=== PATIENT | female | born 1975 | race Caucasian/White ===

== ENCOUNTER 2016-07-16 00:33 | Emergency (ER) | payer OTHER ==
--- NOTE | 2016-07-16 01:32 | ED ORDER SUMMARY ---
..... Patient: YAMILET CASTILLO OrderSheet [facility] VisitID: [id number] [address] [place] [address] 40y, F Registration Date/Time: 07/16/2016 ORDER SHEET Weight: 99.7 kg (stated) Allergies: No Known Drug Allergy GENERAL ORDERS: UA-Culture if indicated Urgent (00:53 07/16/2016 Antoinetteier R.N. per protocol) (Ack 0:54 Anjana) (0:59 Yamileth R.N.) MEDICATION ORDERS: Toradol IM 60 mg (NOW) (:07/16/2016 Boyd RUIZ) (Ack 1:20 RCollier R.N.) (1:29 Antoinetteier R.N.) Ciprofloxacin PO 500 mg (NOW) (01:07/16/2016 Boyd RUIZ) (Ack 1:30 Antoinetteier R.N.) (1:50 RCollier R.N.) IV FLUIDS: ORDER SHEET NOTES: [Electronically signed by Brenda Barkley R.N. (07/16/2016)] [Electronically signed by Charles Ibarra MD (21:09 07/17/2016)] [Electronically locked/signed by Brenda Barkley R.N. (07/16/2016)]
--- NOTE | 2016-07-16 01:32 | ED NURSING NOTES ---
Clinical Report - Nurses [facility] [address] [place] [address] 07/16/2016 0:33 Patient: YAMILET CASTILLO TRIAGE Triage time 00:40. Acuity: LEVEL 4. Chief Complaint: VAGINAL PAIN. Alert. --00:49 Brenda Barkley R.N. 00:39 07/16/16. BP: 158/60. HR: 101. RR: 16 (regular and unlabored). O2 saturation: 100%. Temp: 98.3 F (oral). Pain level now: 09/08. --00:49 Brenda Barkley R.N. Weight: 99.7 kg stated. Height/Length: 59 inches Per Patient. BMI: 44.4. --00:47 Brenda Barkley R.N. Medications Gabapentin Oral (Tablet 600 mg) 1 tablet, 4x a day. --00:43 Brenda Barkley R.N. Macorbid. --00:43 Brenda Barkley R.N. Pyridium Oral. --00:43 Brenda Barkley R.N. Ranitidine HCl Oral (Capsule 150 mg) 1 capsule, 2x a day. --00:44 Brenda Barkley R.N. Dilaudid Oral (Tablet 4 mg) 1 tablet, 3 times daily, stopped one week ago. --00:44 Brenda Barkley R.N. Effexor XR Oral 75 mg, at bedtime. --00:45 Brenda Barkley R.N. TraZODone HCl Oral 100 mg, at bedtime. --00:45 Brenda Barkley R.N. LORazepam Oral (Tablet 0.5 mg) 1 tablet, 3x a day. --00:45 Brenda Barkley R.N. Benadryl Oral, as needed. --00:45 Brenda Barkley R.N. Tylenol Oral (Tablet 325 mg), as needed. --00:46 Brenda Barkley R.N. Allergies No Known Drug Allergy. --00:43 Brenda Barkley R.N. History Arrived by private vehicle. Historian: patient. Accompanied by spouse. Primary physician (Elias). ( has been treated by urologist for past week for UTI, symptoms are not impoving. Pt is having increased vaginal pain (worse tonight), but has been ongoing issue for past 4 years.). Onset. (about 1 weeks ago). 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 PAST MEDICAL HX: Immunizations: up-to-date. Last normal menstrual period was 1 week ago. SOCIAL HX: Heavy tobacco smoker (cigarette)- less than 1 pack per day. No alcohol use or drug use. FUNCTIONAL ASSESSMENT: Functional assessment performed: requires assistance with the activities of daily living; uses wheelchair. --00:49 Brenda Barkley R.N. PROBLEMS: Urinary Retention [Chronic]. --00:47 Brenda Barkley R.N. Gastroesophageal Reflux. Insomnia. Depression. Anxiety Reaction. Anemia. Spina Bifida Occulta. --00:47 Brenda Barkley R.N. ADDITIONAL SURGERIES: . Cystocelle repair. IVC filter. Spina bifida. Suprapubic cystostomy []. Tubal Ligation. --00:47 Brenda Barkley R.N. Interventions ID band on patient. To treatment room. --00:49 Brenda Barkley R.N. PHYSICAL ASSESSMENT To room via wheelchair. Patient gowned. GENERAL / NEURO / PSYCH: Alert. Oriented X 4. Appears in no acute distress. HEENT: Mucous membranes are pink. RESPIRATORY: Respirations not labored. CVS: Capillary refill less than 2 seconds. SKIN: Skin is warm and dry. --00:49 Brenda Barkley R.N. NURSING PROGRESS NOTES Head of bed elevated. Two patient identifiers checked. Call light placed in reach. Side rails up x 1. Bed placed in lowest position. Brakes of bed on. --00:50 Brenda Barkley R.N. Patient ready for evaluation- chart flagged. --00:50 Brenda Barkley R.N. Patient ID band checked for patient name and birthdate: patient confirmed. Catheterized urine collected with return of red-colored urine; sample sent to lab. Specimen labeled in the presence of the patient (colected and labeled by True Yeager RN from subrapubic cath (presentupon arrival to ED)). --00:54 Brenda Barkley R.N. 01:25 07/16/2016 Toradol (Ketorolac Tromethamine) IM 60 mg given. Given in the left ventral gluteus. Allergies verified and confirmed 5 rights. --01:29 Brenda Barkley R.N. 01:40 07/16/2016 Ciprofloxacin (Ciprofloxacin) PO Tablets 500 mg given. Allergies verified and confirmed 5 rights. --01:50 Brenda Barkley R.N. DISPOSITION / DISCHARGE Condition at departure: stable. No learning barriers present. Discharge instructions provided and reviewed with the patient. Reviewed medication(s) side effects, precautions, dosing and course information. Prescription(s) given to the patient. Patient verbalized understanding. Written instructions provided in Macedonian. The patient was discharged home and accompanied by spouse. She left the Emergency Department in a wheelchair and via private vehicle. Spouse driving. --01:51 Brenda Barkley R.N. 01:44 07/16/16. BP: 131/79. HR: 90. RR: 16. O2 saturation: 98% on room air. Temp: deferred. Fox-Mccloud pain scale: 4/10. --01:51 Brenda Barkley R.N. Locked/Released at 07/16/2016 1:53 by Brenda Barkley R.N.
--- NOTE | 2016-07-16 01:32 | ED CLINICAL REPORT ---
Clinical Report - Physicians/Mid Levels [facility] [address] [place] [address] 07/16/2016 0:33 Patient: YAMILET CASTILLO Time Seen: 01:09 Jul 16 2016. Arrived- By private vehicle. Historian- patient and family. CPT: ER phys charges level 4 (#[id number]). HISTORY OF PRESENT ILLNESS Chief Complaint: VAGINAL PAIN and DYSURIA. 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 This is no different and nothing new. She has increased pain because her pain that clinic stopped her pain medicines for the vaginal pain. She has no vaginal discharge or other complaints. she is worried about getting an Enterobacter infection in the urine as this happened to her in the past and required hospitalization. This was due to a failure of Macrobid. She recently saw a urologist that week ago and was placed on Macrobid for UTI. She feels that she may not be better now has a little left flank pain as well. She notes she has chills but not a fever. Modifying factors- worsened by urination. Not relieved by anything. No abdominal pain, flank pain, abnormal bleeding, vaginal discharge or vaginal itching. No genital lesions. (still has cloudy urine.). Similar symptoms previously: Worse. Recent medical care: The patient was seen recently at another facility in the office. Seen for similar symptoms. Evaluation/treatment- macrobid. Diagnosis: (uti). REVIEW OF SYSTEMS No nausea, vomiting, diarrhea, black stools or fever. No chills, sore throat, cough, difficulty breathing or chest pain. No skin rash. All systems otherwise negative, except as recorded above. PAST HISTORY ( UTI; urosepsis due to enterobacter Urinary Retention [Chronic]. --00:47 Brenda Barkley R.N. Gastroesophageal Reflux. Insomnia. Depression. Anxiety Reaction. Anemia. Spina Bifida Occulta. --00:47 Brenda Barkley R.N. ADDITIONAL SURGERIES: . Cystocelle repair. IVC filter. Spina bifida. Suprapubic cystostomy [3 /]. Tubal Ligation.). Medications: Tylenol Oral (Tablet 325 mg), as needed. Benadryl Oral, as needed. LORazepam Oral (Tablet 0.5 mg) 1 tablet, 3x a day. TraZODone HCl Oral 100 mg, at bedtime. Effexor XR Oral 75 mg, at bedtime. Dilaudid Oral (Tablet 4 mg) 1 tablet, 3 times daily, stopped one week ago. Ranitidine HCl Oral (Capsule 150 mg) 1 capsule, 2x a day. Pyridium Oral. Macorbid. Gabapentin Oral (Tablet 600 mg) 1 tablet, 4x a day. Allergies: No Known Drug Allergy. SOCIAL HISTORY Heavy tobacco smoker (cigarette)- 1 pack per day. No alcohol use or drug use. ADDITIONAL NOTES The nursing notes have been reviewed. PHYSICAL EXAM Vital Signs: 07/16/2016 00:39 BP: 158/60. HR: 101. RR: 16. O2 saturation: 100%. Temp: 98.3 F. Pain level now: 7/10. Appearance: Alert. No acute distress. ENT: Pharynx normal. CVS: Heart sounds normal. Respiratory: No respiratory distress. Abdomen: Soft. Mild tenderness in the suprapubic area and lower abdomen. Back: Normal external inspection. No CVA tenderness. Skin: Skin warm. Normal skin color. No rash. Extremities: Extremities nontender. Neuro: Oriented X 3. LABS, X-RAYS, AND EKG Laboratory Tests: UA-Culture if indicated: (ARRON: 07/16/2016 00:45) ( MsgRcvd 07/16/2016 01:06) Final results Test Result Flag Units (Reference) URINE COLOR RED URINE APPEARANCE CLOUDY URINE GLUCOSE 1+ (NEGATIVE) URINE BILIRUBIN 1+ (NEGATIVE) URINE KETONE TRACE (NEGATIVE) URINE SPECIFIC GRAVITY 1.020 (1.010-1.030) URINE PH 5.0 (5.0-8.0) URINE PROTEIN 3+ (NEGATIVE) URINE UROBILINOGEN >=8.0 EU/dL (0.2-1.0) URINE NITRITE POSITIVE (NEGATIVE) URINE BLOOD TRACE-INTACT (NEGATIVE) URINE LEUK ESTERASE POSITIVE (NEGATIVE) URINE RBC 5-10 rbc/hpf (0-1) URINE WBC 5-10 wbc/hpf (0-1) URINE EPITHELIAL CELLS 3-5 EPI/hpf (0-5) URINE BACTERIA FEW (1+) (NONE SEEN) URINE COMMENT CULTURE INDICATED MANY YEASTURINE CULTURES ARE SET-UP BASED ON THE FOLLOWING CRITERIA:POSITIVE NITRITEPOSITIVE LEUKOCYTE ESTERASEGREATER THAN 10 WHITE BLOOD CELLSMODERATE (2+) OR GREATER BACTERIA Culture, Urine: (ARRON: 07/16/2016 00:45) ( MsgRcvd 07/17/2016 12:30) IP Test Result Flag Units (Reference) CULTURE, URINE DATE: 07/17/16 PRELIM REPORT: PRELIMINARY REPORT #1 -- YST QUANTITATIVE URINE GROWTH: 50,000 TO 100,000 CFU/mL ID AND SENS TO FOLLOW: NO FURTHER WORKUP -- GNR QUANTITATIVE URINE GROWTH: 10,000 TO 50,000 CFU/mL ID AND SENS TO FOLLOW: IDENTIFICATION AND SENSITIVITY TO FOLLOW -- MXDGNGP QUANTITATIVE URINE GROWTH: LESS THAN 10,000 CFU/mL ID AND SENS TO FOLLOW: NO FURTHER WORKUP . PROGRESS AND PROCEDURES Course of Care: Pt defers pelvic due to no new symptoms to report in that area. Her pain is chronic. Toradol 60 mg IM Cipro 500 mg po Patient is stable. Patient/family counseled. Disposition: Discharged. Condition: stable. CLINICAL IMPRESSION UTI resistant to treatment Chronic vaginal pain. INSTRUCTIONS Drink plenty of fluids. Warnings: Further evaluation is necessary. Your Current Medications: CONTINUE TAKING THE FOLLOWING MEDICATIONS: Benadryl Oral : prn. Dilaudid Oral : Tablet 4 mg, 1 tablet 3 times daily, Stopped: one week ago. Effexor XR Oral : 75 mg at bedtime. Gabapentin Oral : Tablet 600 mg, 1 tablet 4x a day. LORazepam Oral : Tablet 0.5 mg, 1 tablet 3x a day. Macorbid*. Pyridium Oral. Ranitidine HCl Oral : Capsule 150 mg, 1 capsule 2x a day. TraZODone HCl Oral : 100 mg at bedtime. Tylenol Oral : Tablet 325 mg, prn. Prescription Medications: Cipro 500 mg: take 1 tab orally every 12 hours for 10 days. Dispense twenty (20). No refills. Substitution is permissible. Tramadol 50 mg: take 1-2 orally every 6 hours as needed for pain. Dispense fifteen (15). No refills. Follow-up: Follow up with your doctor in three days. Call for an appointment. Understanding of the discharge instructions verbalized by patient and family. (Electronically signed by Charles Ibarra MD 07/17/2016 21:09) Addenda for YAMILET CASTILLO VisitID: [id number] Date: 07/16/2016 07/16/2016 1:53 Pts home number , verified for culture follow up. Alternative number [phone], , Dell's cell number also given in case need for follow up. (Electronically signed by Brenda Barkley R.N. - 07/16/2016 1:53) 07/17/2016 20:05 2000 Message left on pts cell phone to call back for culture results (Electronically signed by Flavia Orr R.N. - 07/17/2016 20:05) 07/17/2016 21:05 2029 Pt called back, given information, states she wanted us to call rx to Mehnaz villalba in [facility]. [phone] called and rx for Diflucan 150mg po #1 per Isa TYLER called in (Electronically signed by Flavia Orr R.N. - 07/17/2016 21:05)
--- NOTE | 2016-07-16 01:32 | ED NURSING NOTES ---
Clinical Report - Nurses [facility] [address] [place] [address] 07/16/2016 0:33 Patient: YAMILET CASTILLO TRIAGE Triage time 00:40. Acuity: LEVEL 4. Chief Complaint: VAGINAL PAIN. Alert. --00:49 Brenda Barkley R.N. 00:39 07/16/16. BP: 158/60. HR: 101. RR: 16 (regular and unlabored). O2 saturation: 100%. Temp: 98.3 F (oral). Pain level now: 09/08. --00:49 Brenda Barkley R.N. Weight: 99.7 kg stated. Height/Length: 59 inches Per Patient. BMI: 44.4. --00:47 Brenda Barkley R.N. Medications Gabapentin Oral (Tablet 600 mg) 1 tablet, 4x a day. --00:43 Brenad Barkley R.N. Macorbid. --00:43 Brenda Barkley R.N. Pyridium Oral. --00:43 Brenda Barkley R.N. Ranitidine HCl Oral (Capsule 150 mg) 1 capsule, 2x a day. --00:44 Brenda Barkley R.N. Dilaudid Oral (Tablet 4 mg) 1 tablet, 3 times daily, stopped one week ago. --00:44 Brenda Barkley R.N. Effexor XR Oral 75 mg, at bedtime. --00:45 Brenda Barkley R.N. TraZODone HCl Oral 100 mg, at bedtime. --00:45 Brenda Barkley R.N. LORazepam Oral (Tablet 0.5 mg) 1 tablet, 3x a day. --00:45 Brenda Barkley R.N. Benadryl Oral, as needed. --00:45 Brenda Barkley R.N. Tylenol Oral (Tablet 325 mg), as needed. --00:46 Brenda Barkley R.N. Allergies No Known Drug Allergy. --00:43 Brenda Barkley R.N. History Arrived by private vehicle. Historian: patient. Accompanied by spouse. Primary physician (Elias). ( has been treated by urologist for past week for UTI, symptoms are not impoving. Pt is having increased vaginal pain (worse tonight), but has been ongoing issue for past 4 years.). Onset. (about 1 weeks ago). Treatment MODEL AND DYE PERSON: (pyridium, Macrobid (last dose tonight at 2030)). PAST MEDICAL HX: Immunizations: up-to-date. Last normal menstrual period was 1 week ago. SOCIAL HX: Heavy tobacco smoker (cigarette)- less than 1 pack per day. No alcohol use or drug use. FUNCTIONAL ASSESSMENT: Functional assessment performed: requires assistance with the activities of daily living; uses wheelchair. --00:49 Brenda Barkley R.N. PROBLEMS: Urinary Retention [Chronic]. --00:47 Brenda Barkley R.N. Gastroesophageal Reflux. Insomnia. Depression. Anxiety Reaction. Anemia. Spina Bifida Occulta. --00:47 Brenda Barkley R.N. ADDITIONAL SURGERIES: . Cystocelle repair. IVC filter. Spina bifida. Suprapubic cystostomy []. Tubal Ligation. --00:47 Brenda Barkley R.N. Interventions ID band on patient. To treatment room. --00:49 Brenda Barkley R.N. PHYSICAL ASSESSMENT To room via wheelchair. Patient gowned. GENERAL / NEURO / PSYCH: Alert. Oriented X 4. Appears in no acute distress. HEENT: Mucous membranes are pink. RESPIRATORY: Respirations not labored. CVS: Capillary refill less than 2 seconds. SKIN: Skin is warm and dry. --00:49 Brenda Barkley R.N. NURSING PROGRESS NOTES Head of bed elevated. Two patient identifiers checked. Call light placed in reach. Side rails up x 1. Bed placed in lowest position. Brakes of bed on. --00:50 Brenda Barkley R.N. Patient ready for evaluation- chart flagged. --00:50 Brenda Barkley R.N. Patient ID band checked for patient name and birthdate: patient confirmed. Catheterized urine collected with return of red-colored urine; sample sent to lab. Specimen labeled in the presence of the patient (colected and labeled by True Yeager RN from subrapubic cath (presentupon arrival to ED)). --00:54 Brenda Barkley R.N. 01:25 07/16/2016 Toradol (Ketorolac Tromethamine) IM 60 mg given. Given in the left ventral gluteus. Allergies verified and confirmed 5 rights. --01:29 Brenda Barkley R.N. 01:40 07/16/2016 Ciprofloxacin (Ciprofloxacin) PO Tablets 500 mg given. Allergies verified and confirmed 5 rights. --01:50 Brenda Barkley R.N. DISPOSITION / DISCHARGE Condition at departure: stable. No learning barriers present. Discharge instructions provided and reviewed with the patient. Reviewed medication(s) side effects, precautions, dosing and course information. Prescription(s) given to the patient. Patient verbalized understanding. Written instructions provided in Filipino. The patient was discharged home and accompanied by spouse. She left the Emergency Department in a wheelchair and via private vehicle. Spouse driving. --01:51 Brenda Barkley R.N. 01:44 07/16/16. BP: 131/79. HR: 90. RR: 16. O2 saturation: 98% on room air. Temp: deferred. Fox-Mccloud pain scale: 4/10. --01:51 Brenda Barkley R.N. Locked/Released at 07/16/2016 1:53 by Brenda Barkley R.N.
--- NOTE | 2016-07-16 01:32 | ED ORDER SUMMARY ---
..... Patient: YAMILET CASTILLO OrderSheet [facility] VisitID: [id number] [address] [place] [address] 40y, F Registration Date/Time: 07/16/2016 ORDER SHEET Weight: 99.7 kg (stated) Allergies: No Known Drug Allergy GENERAL ORDERS: UA-Culture if indicated Urgent (00:53 07/16/2016 Antoinetteier R.N. per protocol) (Ack 0:54 Anjana) (0:59 Yamileth R.N.) MEDICATION ORDERS: Toradol IM 60 mg (NOW) (:07/16/2016 Boyd RUIZ) (Ack 1:20 RCollier R.N.) (1:29 Antoinetteier R.N.) Ciprofloxacin PO 500 mg (NOW) (01:07/16/2016 Boyd RUIZ) (Ack 1:30 Antoinetteier R.N.) (1:50 RCollier R.N.) IV FLUIDS: ORDER SHEET NOTES: [Electronically signed by Brenda Barkley R.N. (07/16/2016)] [Electronically signed by Charles Ibarra MD (21:09 07/17/2016)] [Electronically locked/signed by Brenda Barkley R.N. (07/16/2016)]
--- NOTE | 2016-07-16 01:32 | ED CLINICAL REPORT ---
Clinical Report - Physicians/Mid Levels [facility] [address] [place] [address] 07/16/2016 0:33 Patient: YAMILET CASTILLO Time Seen: 01:09 Jul 16 2016. Arrived- By private vehicle. Historian- patient and family. CPT: ER phys charges level 4 (#[id number]). HISTORY OF PRESENT ILLNESS Chief Complaint: VAGINAL PAIN and DYSURIA. 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 This is no different and nothing new. She has increased pain because her pain that clinic stopped her pain medicines for the vaginal pain. She has no vaginal discharge or other complaints. she is worried about getting an Enterobacter infection in the urine as this happened to her in the past and required hospitalization. This was due to a failure of Macrobid. She recently saw a urologist that week ago and was placed on Macrobid for UTI. She feels that she may not be better now has a little left flank pain as well. She notes she has chills but not a fever. Modifying factors- worsened by urination. Not relieved by anything. No abdominal pain, flank pain, abnormal bleeding, vaginal discharge or vaginal itching. No genital lesions. (still has cloudy urine.). Similar symptoms previously: Worse. Recent medical care: The patient was seen recently at another facility in the office. Seen for similar symptoms. Evaluation/treatment- macrobid. Diagnosis: (uti). REVIEW OF SYSTEMS No nausea, vomiting, diarrhea, black stools or fever. No chills, sore throat, cough, difficulty breathing or chest pain. No skin rash. All systems otherwise negative, except as recorded above. PAST HISTORY ( UTI; urosepsis due to enterobacter Urinary Retention [Chronic]. --00:47 Brenda Barkley R.N. Gastroesophageal Reflux. Insomnia. Depression. Anxiety Reaction. Anemia. Spina Bifida Occulta. --00:47 Brenda Barkley R.N. ADDITIONAL SURGERIES: . Cystocelle repair. IVC filter. Spina bifida. Suprapubic cystostomy [3 /]. Tubal Ligation.). Medications: Tylenol Oral (Tablet 325 mg), as needed. Benadryl Oral, as needed. LORazepam Oral (Tablet 0.5 mg) 1 tablet, 3x a day. TraZODone HCl Oral 100 mg, at bedtime. Effexor XR Oral 75 mg, at bedtime. Dilaudid Oral (Tablet 4 mg) 1 tablet, 3 times daily, stopped one week ago. Ranitidine HCl Oral (Capsule 150 mg) 1 capsule, 2x a day. Pyridium Oral. Macorbid. Gabapentin Oral (Tablet 600 mg) 1 tablet, 4x a day. Allergies: No Known Drug Allergy. SOCIAL HISTORY Heavy tobacco smoker (cigarette)- 1 pack per day. No alcohol use or drug use. ADDITIONAL NOTES The nursing notes have been reviewed. PHYSICAL EXAM Vital Signs: 07/16/2016 00:39 BP: 158/60. HR: 101. RR: 16. O2 saturation: 100%. Temp: 98.3 F. Pain level now: 7/10. Appearance: Alert. No acute distress. ENT: Pharynx normal. CVS: Heart sounds normal. Respiratory: No respiratory distress. Abdomen: Soft. Mild tenderness in the suprapubic area and lower abdomen. Back: Normal external inspection. No CVA tenderness. Skin: Skin warm. Normal skin color. No rash. Extremities: Extremities nontender. Neuro: Oriented X 3. LABS, X-RAYS, AND EKG Laboratory Tests: UA-Culture if indicated: (ARRON: 07/16/2016 00:45) ( MsgRcvd 07/16/2016 01:06) Final results Test Result Flag Units (Reference) URINE COLOR RED URINE APPEARANCE CLOUDY URINE GLUCOSE 1+ (NEGATIVE) URINE BILIRUBIN 1+ (NEGATIVE) URINE KETONE TRACE (NEGATIVE) URINE SPECIFIC GRAVITY 1.020 (1.010-1.030) URINE PH 5.0 (5.0-8.0) URINE PROTEIN 3+ (NEGATIVE) URINE UROBILINOGEN >=8.0 EU/dL (0.2-1.0) URINE NITRITE POSITIVE (NEGATIVE) URINE BLOOD TRACE-INTACT (NEGATIVE) URINE LEUK ESTERASE POSITIVE (NEGATIVE) URINE RBC 5-10 rbc/hpf (0-1) URINE WBC 5-10 wbc/hpf (0-1) URINE EPITHELIAL CELLS 3-5 EPI/hpf (0-5) URINE BACTERIA FEW (1+) (NONE SEEN) URINE COMMENT CULTURE INDICATED MANY YEASTURINE CULTURES ARE SET-UP BASED ON THE FOLLOWING CRITERIA:POSITIVE NITRITEPOSITIVE LEUKOCYTE ESTERASEGREATER THAN 10 WHITE BLOOD CELLSMODERATE (2+) OR GREATER BACTERIA Culture, Urine: (ARRON: 07/16/2016 00:45) ( MsgRcvd 07/17/2016 12:30) IP Test Result Flag Units (Reference) CULTURE, URINE DATE: 07/17/16 PRELIM REPORT: PRELIMINARY REPORT #1 -- YST QUANTITATIVE URINE GROWTH: 50,000 TO 100,000 CFU/mL ID AND SENS TO FOLLOW: NO FURTHER WORKUP -- GNR QUANTITATIVE URINE GROWTH: 10,000 TO 50,000 CFU/mL ID AND SENS TO FOLLOW: IDENTIFICATION AND SENSITIVITY TO FOLLOW -- MXDGNGP QUANTITATIVE URINE GROWTH: LESS THAN 10,000 CFU/mL ID AND SENS TO FOLLOW: NO FURTHER WORKUP . PROGRESS AND PROCEDURES Course of Care: Pt defers pelvic due to no new symptoms to report in that area. Her pain is chronic. Toradol 60 mg IM Cipro 500 mg po Patient is stable. Patient/family counseled. Disposition: Discharged. Condition: stable. CLINICAL IMPRESSION UTI resistant to treatment Chronic vaginal pain. INSTRUCTIONS Drink plenty of fluids. Warnings: Further evaluation is necessary. Your Current Medications: CONTINUE TAKING THE FOLLOWING MEDICATIONS: Benadryl Oral : prn. Dilaudid Oral : Tablet 4 mg, 1 tablet 3 times daily, Stopped: one week ago. Effexor XR Oral : 75 mg at bedtime. Gabapentin Oral : Tablet 600 mg, 1 tablet 4x a day. LORazepam Oral : Tablet 0.5 mg, 1 tablet 3x a day. Macorbid*. Pyridium Oral. Ranitidine HCl Oral : Capsule 150 mg, 1 capsule 2x a day. TraZODone HCl Oral : 100 mg at bedtime. Tylenol Oral : Tablet 325 mg, prn. Prescription Medications: Cipro 500 mg: take 1 tab orally every 12 hours for 10 days. Dispense twenty (20). No refills. Substitution is permissible. Tramadol 50 mg: take 1-2 orally every 6 hours as needed for pain. Dispense fifteen (15). No refills. Follow-up: Follow up with your doctor in three days. Call for an appointment. Understanding of the discharge instructions verbalized by patient and family. (Electronically signed by Charles Ibarra MD 07/17/2016 21:09) Addenda for YAMILET CASTILLO VisitID: [id number] Date: 07/16/2016 07/16/2016 1:53 Pts home number , verified for culture follow up. Alternative number [phone], , Dell's cell number also given in case need for follow up. (Electronically signed by Brenda Barkley R.N. - 07/16/2016 1:53) 07/17/2016 20:05 2000 Message left on pts cell phone to call back for culture results (Electronically signed by Flavia Orr R.N. - 07/17/2016 20:05) 07/17/2016 21:05 2029 Pt called back, given information, states she wanted us to call rx to Mehnaz villalba in [facility]. [phone] called and rx for Diflucan 150mg po #1 per Isa TYLER called in (Electronically signed by Flavia Orr R.N. - 07/17/2016 21:05)
--- NOTE | 2016-07-17 21:09 | ED MAR SUMMARY ---
..... Medication Administration Record [facility] [address] [place] [address] Patient: YAMILET CASTILLO Visit ID: [id number] 40y, F Weight: 99.7 kg Height/Length: 59 in BMI: 44.4 ALLERGIES: No Known Drug Allergy Given 01:25 07/16/2016 Bredna Barkley, R.N. Medication Administered: TORADOL [IM] (KETOROLAC TROMETHAMINE), Dose: 60 mg IM. Medication Ordered: Toradol IM 60 mg (NOW). Given 01:40 07/16/2016 Brenda Barkley, R.N. Medication Administered: CIPROFLOXACIN [PO] (CIPROFLOXACIN), Dose: 500 mg Tablets PO. Medication Ordered: Ciprofloxacin PO 500 mg (NOW).
--- NOTE | 2016-07-17 21:09 | ED DISCHARGE INSTRUCTIONS ---
Patient: YAMILET CASTILLO General Instructions [facility] VisitID: [id number] [place] [address] 40y, F Registration Date/Time: 07/16/2016 UTI resistant to treatment Chronic vaginal pain. INSTRUCTIONS Drink plenty of fluids. Warnings: Further evaluation is necessary. Your Current Medications: CONTINUE TAKING THE FOLLOWING MEDICATIONS: Benadryl Oral : prn. Dilaudid Oral : Tablet 4 mg, 1 tablet 3 times daily, Stopped: one week ago. Effexor XR Oral : 75 mg at bedtime. Gabapentin Oral : Tablet 600 mg, 1 tablet 4x a day. LORazepam Oral : Tablet 0.5 mg, 1 tablet 3x a day. Macorbid*. Pyridium Oral. Ranitidine HCl Oral : Capsule 150 mg, 1 capsule 2x a day. TraZODone HCl Oral : 100 mg at bedtime. Tylenol Oral : Tablet 325 mg, prn. Prescription Medications: Cipro 500 mg: take 1 tab orally every 12 hours for 10 days. Dispense twenty (20). No refills. Substitution is permissible. Tramadol 50 mg: take 1-2 orally every 6 hours as needed for pain. Dispense fifteen (15). No refills. Follow-up: Follow up with your doctor in three days. Call for an appointment. Understanding of the discharge instructions verbalized by patient and family. ADDITIONAL INFORMATION Tramadol Hydrochloride Oral tablet What is this medicine? TRAMADOL (TRA ma dole) is a pain reliever. It is used to treat moderate to severe pain in adults. How should I use this medicine? Take this medicine by mouth with a full glass of water. Follow the directions on the prescription label. If the medicine upsets your stomach, take it with food or milk. Do not take more medicine than you are told to take. Talk to your piped buttonhole machine operator regarding the use of this medicine in children. Special care may be needed. What side effects may I notice from receiving this medicine? Side effects that you should report to your doctor or health hospice care transitions coordinator as soon as possible: allergic reactions like skin rash, itching or hives, swelling of the face, lips, or tongue breathing difficulties, wheezing confusion itching light headedness or fainting spells redness, blistering, peeling or loosening of the skin, including inside the mouth seizures Side effects that usually do not require medical attention (report to your doctor or health hospice care transitions coordinator if they continue or are bothersome): constipation dizziness drowsiness headache nausea, vomiting What may interact with this medicine? Do not take this medicine with any of the following medications: MAOIs like Carbex, Eldepryl, Marplan, Nardil, and Parnate This medicine may also interact with the following medications: alcohol or medicines that contain alcohol antihistamines benzodiazepines bupropion carbamazepine or oxcarbazepine clozapine cyclobenzaprine digoxin furazolidone linezolid medicines for depression, anxiety, or psychotic disturbances medicines for migraine headache like almotriptan, eletriptan, frovatriptan, naratriptan, rizatriptan, sumatriptan, zolmitriptan medicines for pain like pentazocine, buprenorphine, butorphanol, meperidine, nalbuphine, and propoxyphene medicines for sleep muscle relaxants naltrexone phenobarbital phenothiazines like perphenazine, thioridazine, chlorpromazine, mesoridazine, fluphenazine, prochlorperazine, promazine, and trifluoperazine procarbazine warfarin What if I miss a dose? If you miss a dose, take it as soon as you can. If it is almost time for your next dose, take only that dose. Do not take double or extra doses. Where should I keep my medicine? Keep out of the reach of children. Store at room temperature between 15 and 30 degrees C (59 and 86 degrees F). Keep container tightly closed. Throw away any unused medicine after the expiration date. What should I tell my health care provider before I take this medicine? They need to know if you have any of these conditions: brain tumor depression drug abuse or addiction head injury if you frequently drink alcohol containing drinks kidney disease or trouble passing urine liver disease lung disease, asthma, or breathing problems seizures or epilepsy suicidal thoughts, plans, or attempt; a previous suicide attempt by you or a family member an unusual or allergic reaction to tramadol, codeine, other medicines, foods, dyes, or preservatives or trying to get breast-feeding What should I watch for while using this medicine? Tell your doctor or health hospice care transitions coordinator if your pain does not go away, if it gets worse, or if you have new or a different type of pain. You may develop tolerance to the medicine. Tolerance means that you will need a higher dose of the medicine for pain relief. Tolerance is normal and is expected if you take this medicine for a long time. Do not suddenly stop taking your medicine because you may develop a severe reaction. Your body becomes used to the medicine. This does NOT mean you are addicted. Addiction is a behavior related to getting and using a drug for a non-medical reason. If you have pain, you have a medical reason to take pain medicine. Your doctor will tell you how much medicine to take. If your doctor wants you to stop the medicine, the dose will be slowly lowered over time to avoid any side effects. You may get drowsy or dizzy. Do not drive, use machinery, or do anything that needs mental alertness until you know how this medicine affects you. Do not stand or sit up quickly, especially if you are an older patient. This reduces the risk of dizzy or fainting spells. Alcohol can increase or decrease the effects of this medicine. Avoid alcoholic drinks. You may have constipation. Try to have a bowel movement at least every 2 to 3 days. If you do not have a bowel movement for 3 days, call your doctor or health hospice care transitions coordinator. Your mouth may get dry. Chewing sugarless gum or sucking hard candy, and drinking plenty of water may help. Contact your doctor if the problem does not go away or is severe. You have been given the following additional information: Tramadol Hydrochloride Oral tablet (Electronically signed by Charles Ibarra MD 07/17/2016 21:09)
--- NOTE | 2016-07-17 21:09 | ED DISCHARGE INSTRUCTIONS ---
Patient: YAMILET CASTILLO General Instructions [facility] VisitID: [id number] [place] [address] 40y, F Registration Date/Time: 07/16/2016 UTI resistant to treatment Chronic vaginal pain. INSTRUCTIONS Drink plenty of fluids. Warnings: Further evaluation is necessary. Your Current Medications: CONTINUE TAKING THE FOLLOWING MEDICATIONS: Benadryl Oral : prn. Dilaudid Oral : Tablet 4 mg, 1 tablet 3 times daily, Stopped: one week ago. Effexor XR Oral : 75 mg at bedtime. Gabapentin Oral : Tablet 600 mg, 1 tablet 4x a day. LORazepam Oral : Tablet 0.5 mg, 1 tablet 3x a day. Macorbid*. Pyridium Oral. Ranitidine HCl Oral : Capsule 150 mg, 1 capsule 2x a day. TraZODone HCl Oral : 100 mg at bedtime. Tylenol Oral : Tablet 325 mg, prn. Prescription Medications: Cipro 500 mg: take 1 tab orally every 12 hours for 10 days. Dispense twenty (20). No refills. Substitution is permissible. Tramadol 50 mg: take 1-2 orally every 6 hours as needed for pain. Dispense fifteen (15). No refills. Follow-up: Follow up with your doctor in three days. Call for an appointment. Understanding of the discharge instructions verbalized by patient and family. ADDITIONAL INFORMATION Tramadol Hydrochloride Oral tablet What is this medicine? TRAMADOL (TRA ma dole) is a pain reliever. It is used to treat moderate to severe pain in adults. How should I use this medicine? Take this medicine by mouth with a full glass of water. Follow the directions on the prescription label. If the medicine upsets your stomach, take it with food or milk. Do not take more medicine than you are told to take. Talk to your room designer regarding the use of this medicine in children. Special care may be needed. What side effects may I notice from receiving this medicine? Side effects that you should report to your doctor or health attending ambulatory care as soon as possible: allergic reactions like skin rash, itching or hives, swelling of the face, lips, or tongue breathing difficulties, wheezing confusion itching light headedness or fainting spells redness, blistering, peeling or loosening of the skin, including inside the mouth seizures Side effects that usually do not require medical attention (report to your doctor or health attending ambulatory care if they continue or are bothersome): constipation dizziness drowsiness headache nausea, vomiting What may interact with this medicine? Do not take this medicine with any of the following medications: MAOIs like Carbex, Eldepryl, Marplan, Nardil, and Parnate This medicine may also interact with the following medications: alcohol or medicines that contain alcohol antihistamines benzodiazepines bupropion carbamazepine or oxcarbazepine clozapine cyclobenzaprine digoxin furazolidone linezolid medicines for depression, anxiety, or psychotic disturbances medicines for migraine headache like almotriptan, eletriptan, frovatriptan, naratriptan, rizatriptan, sumatriptan, zolmitriptan medicines for pain like pentazocine, buprenorphine, butorphanol, meperidine, nalbuphine, and propoxyphene medicines for sleep muscle relaxants naltrexone phenobarbital phenothiazines like perphenazine, thioridazine, chlorpromazine, mesoridazine, fluphenazine, prochlorperazine, promazine, and trifluoperazine procarbazine warfarin What if I miss a dose? If you miss a dose, take it as soon as you can. If it is almost time for your next dose, take only that dose. Do not take double or extra doses. Where should I keep my medicine? Keep out of the reach of children. Store at room temperature between 15 and 30 degrees C (59 and 86 degrees F). Keep container tightly closed. Throw away any unused medicine after the expiration date. What should I tell my health care provider before I take this medicine? They need to know if you have any of these conditions: brain tumor depression drug abuse or addiction head injury if you frequently drink alcohol containing drinks kidney disease or trouble passing urine liver disease lung disease, asthma, or breathing problems seizures or epilepsy suicidal thoughts, plans, or attempt; a previous suicide attempt by you or a family member an unusual or allergic reaction to tramadol, codeine, other medicines, foods, dyes, or preservatives or trying to get breast-feeding What should I watch for while using this medicine? Tell your doctor or health attending ambulatory care if your pain does not go away, if it gets worse, or if you have new or a different type of pain. You may develop tolerance to the medicine. Tolerance means that you will need a higher dose of the medicine for pain relief. Tolerance is normal and is expected if you take this medicine for a long time. Do not suddenly stop taking your medicine because you may develop a severe reaction. Your body becomes used to the medicine. This does NOT mean you are addicted. Addiction is a behavior related to getting and using a drug for a non-medical reason. If you have pain, you have a medical reason to take pain medicine. Your doctor will tell you how much medicine to take. If your doctor wants you to stop the medicine, the dose will be slowly lowered over time to avoid any side effects. You may get drowsy or dizzy. Do not drive, use machinery, or do anything that needs mental alertness until you know how this medicine affects you. Do not stand or sit up quickly, especially if you are an older patient. This reduces the risk of dizzy or fainting spells. Alcohol can increase or decrease the effects of this medicine. Avoid alcoholic drinks. You may have constipation. Try to have a bowel movement at least every 2 to 3 days. If you do not have a bowel movement for 3 days, call your doctor or health attending ambulatory care. Your mouth may get dry. Chewing sugarless gum or sucking hard candy, and drinking plenty of water may help. Contact your doctor if the problem does not go away or is severe. You have been given the following additional information: Tramadol Hydrochloride Oral tablet (Electronically signed by Charles Ibarra MD 07/17/2016 21:09)
--- NOTE | 2016-07-17 21:09 | ED MED RECONCILIATION SUMMARY ---
Patient: YAMILET CASTILLO Medication Reconciliation Report [facility] VisitID: [id number] [address] [place] [address] 40y, F Registration Date/Time: 07/16/2016 Weight: 99.7 kg Height/Length: 59 in. BMI: 44.4 ALLERGIES: No Known Drug Allergy The patient's Home Medications are listed below: CONTINUE TAKING THE FOLLOWING MEDICATIONS: Benadryl Oral Dilaudid Oral (4 mg) 1 tablet, 3 times daily Effexor XR Oral 75 mg, at bedtime Gabapentin Oral (600 mg) 1 tablet, 4x a day LORazepam Oral (0.5 mg) 1 tablet, 3x a day Macorbid Pyridium Oral Ranitidine HCl Oral (150 mg) 1 capsule, 2x a day TraZODone HCl Oral 100 mg, at bedtime Tylenol Oral (325 mg) The source(s) of the original Home Medication information: Not obtained. The following Medications were given to the patient in the Emergency Department: Toradol [IM] IM 60 mg, administered: 07/16/2016 1:25:00 AM Ciprofloxacin [PO] PO 500 mg, administered: 07/16/2016 1:40:00 AM The following Medications were prescribed to the patient: Cipro 500 mg: take 1 tab orally every 12 hours for 10 days. Dispense twenty (20). No refills. Substitution is permissible. -- Charles Ibarra MD Tramadol 50 mg: take 1-2 orally every 6 hours as needed for pain. Dispense fifteen (15). No refills. -- Charles Ibarra MD
--- NOTE | 2016-07-17 21:09 | ED MED RECONCILIATION SUMMARY ---
Patient: YAMILET CASTILLO Medication Reconciliation Report [facility] VisitID: [id number] [address] [place] [address] 40y, F Registration Date/Time: 07/16/2016 Weight: 99.7 kg Height/Length: 59 in. BMI: 44.4 ALLERGIES: No Known Drug Allergy The patient's Home Medications are listed below: CONTINUE TAKING THE FOLLOWING MEDICATIONS: Benadryl Oral Dilaudid Oral (4 mg) 1 tablet, 3 times daily Effexor XR Oral 75 mg, at bedtime Gabapentin Oral (600 mg) 1 tablet, 4x a day LORazepam Oral (0.5 mg) 1 tablet, 3x a day Macorbid Pyridium Oral Ranitidine HCl Oral (150 mg) 1 capsule, 2x a day TraZODone HCl Oral 100 mg, at bedtime Tylenol Oral (325 mg) The source(s) of the original Home Medication information: Not obtained. The following Medications were given to the patient in the Emergency Department: Toradol [IM] IM 60 mg, administered: 07/16/2016 1:25:00 AM Ciprofloxacin [PO] PO 500 mg, administered: 07/16/2016 1:40:00 AM The following Medications were prescribed to the patient: Cipro 500 mg: take 1 tab orally every 12 hours for 10 days. Dispense twenty (20). No refills. Substitution is permissible. -- Charles Ibarra MD Tramadol 50 mg: take 1-2 orally every 6 hours as needed for pain. Dispense fifteen (15). No refills. -- Charles Ibarra MD
--- NOTE | 2016-07-17 21:09 | ED MAR SUMMARY ---
..... Medication Administration Record [facility] [address] [place] [address] Patient: YAMILET CASTILLO Visit ID: [id number] 40y, F Weight: 99.7 kg Height/Length: 59 in BMI: 44.4 ALLERGIES: No Known Drug Allergy Given 01:25 07/16/2016 Brenda Barkley, R.N. Medication Administered: TORADOL [IM] (KETOROLAC TROMETHAMINE), Dose: 60 mg IM. Medication Ordered: Toradol IM 60 mg (NOW). Given 01:40 07/16/2016 Brenda Barkley, R.N. Medication Administered: CIPROFLOXACIN [PO] (CIPROFLOXACIN), Dose: 500 mg Tablets PO. Medication Ordered: Ciprofloxacin PO 500 mg (NOW).
== END 2016-07-16 01:44 | disposition home or self-care (01) ==
LOC: ED SRH 00:33
DX: N39.0 Urinary tract infection, site not specified (principal); R10.2 Pelvic and perineal pain; G89.29 Other chronic pain; Q76.0 Spina bifida occulta; K21.9 Gastro-esophageal reflux disease without esophagitis; Z79.899 Other long term (current) drug therapy; Z79.2 Long term (current) use of antibiotics
CPT/HCPCS: 90004; 90148; 90469